=== PATIENT | male | born 1985 | race American Indian/Alaskan Native ===

== ENCOUNTER 2020-07-27 14:32 | Emergency (ER) | payer SELFPAY ==
[2020-07-27 14:38] VITALS: BP 128/89
[2020-07-27] MEDS ORDERED: ONDANSETRON 4 MG/2 ML INJ IV ONE (17:19)
[2020-07-27] MEDS ORDERED: MORPHINE 4 MG/1 ML INJ IV ONE (17:19)
[2020-07-27] MEDS ORDERED: KETOROLAC 30 MG/1 ML INJ IV ONE (17:19)
--- NOTE | 2020-07-27 17:22 | Emergency Department Report ---
ED Male HPI - General Chief complaint: Urogenital-Male Stated complaint: LUMP NEAR GROIN Time Seen by Provider: 07/27/20 16:59 Source: patient Mode of arrival: Ambulatory Limitations: No Limitations - History of Present Illness Initial comments: 35 yr old male with no significant past medical hx presents to ED c/o pain and swelling to left inguinal area. He states it started small about 1 week ago and has since gotten bigger and more painful. He states pain radiates in left groin and testicles but no swelling or redness testicles. He denies any drainage from it. He states he recently started working out but he has not noticed any hernias. He states he has been having intermittent fever, highest measured was 103. He denies any penile pain, swelling, discharge, or uti symptoms. He denies hx of abscess in past. MD Complaint: groin pain, other (left groin pain and swelling) - Related Data Allergies Allergy/AdvReac Type Severity Reaction Status Date / Time No Known Allergies Allergy Unverified 07/27/20 14:37 ED Review of Systems ROS: Stated complaint: LUMP NEAR GROIN Other details as noted in HPI Comment: All other systems reviewed and negative Constitutional: fever Gastrointestinal: denies: abdominal pain, nausea, diarrhea Genitourinary: testicular pain, other (left inguinal swelling/pain). denies: urgency, dysuria, frequency, hematuria, discharge, testicular mass Skin: lesions (left inguinal area) Neurological: denies: headache, weakness, paresthesias Psychiatric: denies: anxiety, depression Hematological/Lymphatic: denies: easy bleeding, easy bruising ED Past Medical Hx - Past Medical History Previous Medical History?: Yes Hx HIV: Yes - Surgical History Past Surgical History?: No ED Physical Exam - General Limitations: No Limitations General appearance: alert, in no apparent distress - Head Head exam: Present: atraumatic, normocephalic, normal inspection - Eye Eye exam: Present: normal appearance, PERRL, EOMI Pupils: Present: normal accommodation - ENT ENT exam: Present: normal exam, mucous membranes moist - Respiratory Respiratory exam: Absent: respiratory distress - Cardiovascular Cardiovascular Exam: Present: regular rate, normal rhythm - GI/Abdominal GI/Abdominal exam: Present: soft. Absent: distended, tenderness, guarding, rebound - exam: Present: testicular tenderness (mild left). Absent: urethral discharge, scrotal swelling External exam: Present: other (6cm x 6cm indurated/mass like structure palpated left inguinal area with subtle overly erythema; severe ttp; pt does have chronic overly rash. no apparent hernia palpated in inguinal ring; no apparent fluctuance or area of pointing) - Neurological Exam Neurological exam: Present: alert, oriented X3, CN II-XII intact - Psychiatric Psychiatric exam: Present: normal affect, normal mood - Skin Skin exam: Present: intact ED Course Vital Signs 07/27/20 14:37 Temperature 97.9 F Pulse Rate 90 Respiratory 18 Rate Blood Pressure 128/89 [Right] O2 Sat by Pulse 98 Oximetry ED Medical Decision Making - Lab Data Result diagrams: 07/27/20 17:36 07/27/20 17:36 - Medical Decision Making 1900 -- Case, lab results, pending test discussed with [facility]. CT abdomen/pelvis pending. pt notified of results and pending test. He is currently resting comfortable and he is stable. Critical care attestation.: If time is entered above; I have spent that time in minutes in the direct care of this critically ill patient, excluding procedure time. ED Disposition Condition: Stable
[2020-07-27 18:12] LABS: Basophils # (Auto) 0.1 K/mm3 (0.0-0.1); Basophils % (Auto) 0.4 % (0.0-1.8); Eosinophils % (Auto) 0.1 % (0.0-4.3); Hemoglobin 15.8 gm/dl (11.8-15.2); Lymphocytes % (Auto) 33.3 % (13.4-35.0); Mean Corpuscular HGB Conc 34 % (32-34); Mean Corpuscular Volume 95 fl (84-94); Monocytes # (Auto) 0.9 K/mm3 (0.0-0.8); Monocytes % (Auto) 7.1 % (0.0-7.3); Platelet Count 365 K/mm3 (140-440); Red Blood Count 4.82 M/mm3 (3.65-5.03); Red Cell Distribution Width 16.7 % (13.2-15.2)
[2020-07-27 18:30] LABS: Alanine Aminotransferase 12 units/L (7-56); Albumin 4.5 g/dL (3.9-5); BUN/Creatinine Ratio 7; Blood Urea Nitrogen 8 mg/dL (9-20); Calcium 9.4 mg/dL (8.4-10.2); Hemolysis Index 4
[2020-07-27 18:44] LABS: Color,Urine Amber (Yellow)
[2020-07-27 18:45] LABS: Bilirubin,Urine NEG (Negative); Blood,Urine NEG (Negative); Mucus,Urine 1+ /HPF
--- NOTE | 2020-07-27 20:04 | Cat Scan Report ---
CT ABDOMEN AND PELVIS WITH CONTRAST INDICATION / CLINICAL INFORMATION: Pain/swelling/left inguinal.groin area. TECHNIQUE: Axial CT images were obtained through the abdomen and pelvis after IV contrast. All CT scans at this location are performed using CT dose reduction for ALARA by means of automated exposure control. COMPARISON: None available. FINDINGS: LOWER CHEST: No significant abnormality. LIVER: Focal fatty replacement noted hepatic segment 4. GALLBLADDER: No significant abnormality. BILE DUCTS: No significant abnormality. PANCREAS: No significant abnormality. SPLEEN: No significant abnormality. ADRENALS: No significant abnormality. RIGHT KIDNEY / URETER: No significant abnormality. LEFT KIDNEY / URETER: No significant abnormality. STOMACH / SMALL BOWEL: No significant abnormality. COLON: No significant abnormality. APPENDIX: No significant abnormality. PERITONEUM: No free fluid. No free air. No fluid collection. LYMPH NODES: No significant adenopathy. AORTA / ARTERIES: No significant abnormality. IVC / VEINS: No significant abnormality. URINARY BLADDER: No significant abnormality. REPRODUCTIVE ORGANS: No significant abnormality. ADDITIONAL FINDINGS: Area of superficial soft tissue swelling and edema in the left inguinal region m easuring 5 x 3.3 cm. Lymphadenopathy is also noted in the left inguinal region extending into the lef t iliac chain. The largest lymph node measures 1.4 cm in short axis in the left iliac chain. No evide nce of drainable fluid collection. SKELETAL SYSTEM: No significant abnormality. IMPRESSION: 1. Inflammatory/infectious process involving the superficial soft tissues in the left inguinal region with associated left inguinal and left iliac chain reactive lymphadenopathy. This process likely rep resents cellulitis versus developing phlegmon. No evidence of drainable fluid collections. Signer Name: Dieter Keita MD Signed: 07/27/2020 8:00 PM Workstation Name: [id number]
--- NOTE | 2020-07-27 22:02 | Ultrasound Report ---
ULTRASOUND SCROTUM INDICATION / CLINICAL INFORMATION: left groin pain/testicular pain. COMPARISON: None available. FINDINGS -- RIGHT TESTIS: Size = 5.0 x 2.4 x 3.3 cm. - Appearance: No significant abnormality. - Cyst or Mass: None. - Color Doppler Flow: No significant abnormality. EPIDIDYMIS: No significant abnormality. HYDROCELE: None. VARICOCELE: None demonstrated. FINDINGS -- LEFT TESTIS: Size = 5.1 x 1.7 x 3.0 cm. - Appearance: No significant abnormality. - Cyst or Mass: None. - Color Doppler Flow: No significant abnormality. EPIDIDYMIS: No significant abnormality. HYDROCELE: None. VARICOCELE: None demonstrated. ADDITIONAL FINDINGS: None. IMPRESSION: No significant abnormality. No evidence of testicular torsion. Signer Name: Deo Bejarano MD Signed: 07/27/2020 9:57 PM Workstation Name: [id number]
== END 2020-07-27 23:15 | disposition home or self-care (01) ==
LOC: ED 14:32
DX: R19.09 Other intra-abdominal and pelvic swelling, mass and lump (principal); Z21 Asymptomatic human immunodeficiency virus [HIV] infection status
CPT/HCPCS: 36415; 74177; 80053; 81001; 85025; 87040; 93975; 96365; 96375; 99284; J1885; J2270; J2405; Q9967